=== PATIENT | female | born 1990 | race Caucasian/White ===

== ENCOUNTER 2021-01-26 22:01 | Emergency (ER) | payer BC ==
[~2021-01-26 22:01] MED LIST: BUPRENORPHIN-N1 EACH SL; BUPRENORPHINE HC8 MG SL; COLACE 100MG C100 MG PO; FERROUS SULFAT325 MG PO; IBUPROFEN600 MG PO; LEVOTHYROXINE50 MCG PO; VALACYCLOVIR500 MG PO
[2021-01-26] MEDS ORDERED: NORFLEX 100 MG100 MG PO (23:09)
[2021-01-26] MEDS ORDERED: LODINE CAP 300300 MG PO (23:09)
== END 2021-01-26 23:20 | disposition home or self-care (01) ==
LOC: ER1 22:01
DX: S16.1XXA Strain of muscle, fascia and tendon at neck level, initial encounter (principal); S20.212A Contusion of left front wall of thorax, initial encounter; E03.9 Hypothyroidism, unspecified; V49.50XA Passenger injured in collision with unspecified motor vehicles in traffic accident, initial encounter; Y92.410 Unspecified street and highway as the place of occurrence of the external cause
CPT/HCPCS: 71045; 72040; 99283